=== PATIENT | male | born 1985 | race American Indian/Alaskan Native ===

== ENCOUNTER 2018-12-02 18:39 | Emergency (ER) | payer BC ==
--- NOTE | 2018-12-02 19:34 | Emergency Department Report ---
Blank Doc - Documentation Documentation: this is a 33-year-old male that presents with sob. Patient also stated is con cerned that somebody is out to get him. Patient denies any SI/HI. PMH includes "hearing voices". Patient is a poor historian. This initial assessment/diagnostic orders/clinical plan/treatment(s) is/are subject to change based on patient's health status, clinical progression and re- assessment by fellow clinical providers in the ED. Further treatment and workup at subsequent clinical providers discretion. Patient/guardians urged not to elope from the ED as their condition may be serious if not clinically assessed and managed. Initial orders include: 1- Patient sent to MAIN ED for further evaluation and treatment 2- labs 3- EKg 4- CXR 5- psych consult
[2018-12-02 20:18] LABS: Basophils # (Auto) 0.1 K/mm3 (0.0-0.1); Eosinophils % (Auto) 0.3 % (0.0-4.3); Hematocrit 44.3 % (35.5-45.6); Hemoglobin 14.8 gm/dl (11.8-15.2); Lymphocytes % (Auto) 22.9 % (13.4-35.0); Mean Corpuscular HGB Conc 33 % (32-34); Mean Corpuscular Volume 86 fl (84-94); Monocytes # (Auto) 0.8 K/mm3 (0.0-0.8); Monocytes % (Auto) 9.7 % (0.0-7.3); Platelet Count 341 K/mm3 (140-440); Red Blood Count 5.14 M/mm3 (3.65-5.03)
[2018-12-02 20:32] LABS: Creatine Kinase MB 8.8 ng/mL (0.0-4.0)
[2018-12-02 20:33] LABS: Alanine Aminotransferase 33 units/L (7-56); Albumin 4.3 g/dL (3.9-5); BUN/Creatinine Ratio 10; Blood Urea Nitrogen 7 mg/dL (9-20); Calcium 9.2 mg/dL (8.4-10.2); Hemolysis Index 8
[2018-12-02 20:36] LABS: INR 0.96 (0.87-1.13)
[2018-12-02 20:37] LABS: Partial Thromboplastin Time 26.9 Sec. (24.2-36.6)
--- NOTE | 2018-12-02 20:50 | XRay Report ---
PROCEDURE: XR CHEST ROUTINE 2V TECHNIQUE: PA and lateral views of the chest HISTORY: Dyspnea COMPARISONS: None FINDINGS: There is prominence of the interstitial markings in both lungs with peribronchial thickening, acute v ersus chronic. There appear to be patchy areas of pulmonary consolidation in both lung bases. Atelectasis versus inf iltrates. There is no evidence of pneumothorax or pleural fluid collection. The cardiomediastinal silhouette is normal in appearance. The bony structures are notable for dextrocurvature of the thoracic spine. IMPRESSION: 1. Prominence of the interstitial markings with peribronchial thickening, acute versus chronic. In th e proper clinical setting this may represent changes of bronchiolitis. 2. Atelectasis versus infiltrate both lung bases. 3. Dextrocurvature thoracic spine. This document is electronically signed by Judith Zamorano MD., December 02 2018 08:48:00 PM ET
[2018-12-02] MEDS ORDERED: NACL 0.9% 1000 ML 1,000 ML IV ONE ×2 (22:44→23:38)
[2018-12-02] MEDS ORDERED: BENADRYL PO ONE (23:04)
--- NOTE | 2018-12-02 23:08 | Emergency Department Report ---
HPI - General Chief Complaint: Dyspnea/Respdistress Time Seen by Provider: 12/02/18 19:25 - HPI HPI: Room 16 The patient is a 33-year-old male presenting with a chief complaint of anxiety. The patient states for one day's been unable to sleep and has had shortness of breath. Patient states he feels anxious. Patient denies cough or fever. Patient denies auditory or visual hallucinations. Patient denies suicidal or homicidal ideation. Patient denies any other complaints Location: [See above] Duration: [See above] Quality: Anxious Severity: Moderate Modifying factors: [see above] Context: [see above] Mode of transportation: [not driving] ED Past Medical Hx - Past Medical History Previous Medical History?: No Hx Hypertension: Yes Hx Psychiatric Treatment: Yes (psychosis NOS) - Surgical History Past Surgical History?: No - Family History Family history: no significant - Social History Smoking Status: Never Smoker Substance Use Type: None (denies illicit drug use) - Medications Home Medications: Home Medications Medication Instructions Recorded Confirmed Last Taken Type No Known Home Medications [No 12/02/18 12/02/18 Unknown History Reported Home Medications] ED Review of Systems ROS: Stated complaint: DHARMESH/SOB Other details as noted in HPI Constitutional: no symptoms reported Eyes: denies: eye pain ENT: denies: throat pain Respiratory: shortness of breath Cardiovascular: denies: chest pain Endocrine: no symptoms reported Gastrointestinal: denies: abdominal pain Genitourinary: denies: dysuria Musculoskeletal: denies: back pain Neurological: denies: headache Psychiatric: denies: auditory hallucinations, visual hallucinations, homicidal thoughts, suicidal thoughts Physical Exam - Physical Exam Vital Signs: Vital Signs 12/02/18 19:32 Temperature 98.3 F Pulse Rate 66 Respiratory 18 Rate Blood Pressure 137/88 Physical Exam: GENERAL: The patient is well-developed well-nourished male lying on stretcher not appear to be in acute distress. [] HEENT: Normocephalic. Atraumatic. Extraocular motions are intact. Patient has moist mucous membranes. NECK: Supple. Trachea midline CHEST/LUNGS: Clear to auscultation. There is no respiratory distress noted. HEART/CARDIOVASCULAR: Regular. There is no tachycardia. There is no gallop rub or murmur. ABDOMEN: Abdomen is soft, nontender. Patient has normal bowel sounds. There is no abdominal distention. SKIN: There is no rash. There is no edema. There is no diaphoresis. NEURO: The patient is awake, alert, and oriented. The patient is cooperative. The patient has no focal neurologic deficits. The patient has normal speech and gait. MUSCULOSKELETAL: There is no evidence of acute injury. ED Course Vital Signs 12/02/18 19:32 Temperature 98.3 F Pulse Rate 66 Respiratory 18 Rate Blood Pressure 137/88 ED Medical Decision Making - Lab Data Result diagrams: 12/02/18 20:00 12/02/18 20:00 Laboratory Tests 12/02/18 12/02/18 12/02/18 20:00 20:00 20:00 WBC 8.6 RBC 5.14 H Hgb 14.8 Hct 44.3 MCV 86 MCH 29 MCHC 33 RDW 14.0 Plt Count 341 Lymph % (Auto) 22.9 Potter % (Auto) 9.7 H Eos % (Auto) 0.3 Baso % (Auto) 1.0 Lymph # 2.0 Potter # 0.8 Eos # 0.0 Baso # 0.1 Seg Neutrophils % 66.1 Seg Neutrophils # 5.7 PT 13.4 INR 0.96 APTT 26.9 D-Dimer Sodium 134 L Potassium 3.4 L Chloride 96.8 L Carbon Dioxide 23 Anion Gap 18 BUN 7 L Creatinine 0.7 L Estimated GFR > 60 BUN/Creatinine Ratio 10 Glucose 94 Calcium 9.2 Total Bilirubin 0.40 AST 46 H ALT 33 Alkaline Phosphatase 57 Total Creatine Kinase CK-MB (CK-2) CK-MB (CK-2) Rel Index Troponin T Total Protein 7.7 Albumin 4.3 Albumin/Globulin Ratio 1.3 Salicylates Acetaminophen Plasma/Serum Alcohol 12/02/18 12/02/18 12/02/18 20:00 20:00 20:00 WBC RBC Hgb Hct MCV MCH MCHC RDW Plt Count Lymph % (Auto) Potter % (Auto) Eos % (Auto) Baso % (Auto) Lymph # Potter # Eos # Baso # Seg Neutrophils % Seg Neutrophils # PT INR APTT D-Dimer Sodium Potassium Chloride Carbon Dioxide Anion Gap BUN Creatinine Estimated GFR BUN/Creatinine Ratio Glucose Calcium Total Bilirubin AST ALT Alkaline Phosphatase Total Creatine Kinase 1686 H CK-MB (CK-2) 8.8 H CK-MB (CK-2) Rel Index 0.5 Troponin T < 0.010 Total Protein Albumin Albumin/Globulin Ratio Salicylates < 0.3 L Acetaminophen < 5.0 L Plasma/Serum Alcohol 12/02/18 12/02/18 12/03/18 20:00 22:30 01:19 WBC RBC Hgb Hct MCV MCH MCHC RDW Plt Count Lymph % (Auto) Potter % (Auto) Eos % (Auto) Baso % (Auto) Lymph # Potter # Eos # Baso # Seg Neutrophils % Seg Neutrophils # PT INR APTT D-Dimer 240.77 H Sodium Potassium Chloride Carbon Dioxide Anion Gap BUN Creatinine Estimated GFR BUN/Creatinine Ratio Glucose Calcium Total Bilirubin AST ALT Alkaline Phosphatase Total Creatine Kinase CK-MB (CK-2) CK-MB (CK-2) Rel Index Troponin T < 0.010 Total Protein Albumin Albumin/Globulin Ratio Salicylates Acetaminophen Plasma/Serum Alcohol < 0.01 12/03/18 01:19 WBC RBC Hgb Hct MCV MCH MCHC RDW Plt Count Lymph % (Auto) Potter % (Auto) Eos % (Auto) Baso % (Auto) Lymph # Potter # Eos # Baso # Seg Neutrophils % Seg Neutrophils # PT INR APTT D-Dimer Sodium Potassium Chloride Carbon Dioxide Anion Gap BUN Creatinine Estimated GFR BUN/Creatinine Ratio Glucose Calcium Total Bilirubin AST ALT Alkaline Phosphatase Total Creatine Kinase 1360 H CK-MB (CK-2) CK-MB (CK-2) Rel Index Troponin T Total Protein Albumin Albumin/Globulin Ratio Salicylates Acetaminophen Plasma/Serum Alcohol - EKG Data -: EKG Interpreted by Sd EKG shows normal: sinus rhythm Rate: bradycardia (58 bpm) - EKG Data When compared to previous EKG there are: previous EKG unavailable Interpretation: nonspecific ST-T wave wild - Radiology Data Radiology results: report reviewed (chest x-ray), image reviewed (chest x-ray) Findings [facility] [address] [place] [address] XRay Report Signed Patient: BRANDON ANDERSON MR#: [id number] : 1985 A cct:[id number] Age/Sex: 33 / M ADM Date: 12/02/18 Loc: ED Attending Dr: Ordering Physician: HEAVENLY BRICE NP Date of Service: 12/02/18 Procedure(s): XR chest routine 2V Accession Number(s): [id number] cc: HEAVENLY BRICE NP Fluoro Time In Minutes: PROCEDURE: XR CHEST ROUTINE 2V TECHNIQUE: PA and lateral views of the chest HISTORY: Dyspnea COMPARISONS: None FINDINGS: There is prominence of the interstitial markings in both lungs with peribronchial thickening, acute versus chronic. There appear to be patchy areas of pulmonary consolidation in both lung bases. Atelectasis versus infiltrates. There is no evidence of pneumothorax or pleural fluid collection. The cardiomediastinal silhouette is normal in appearance. The bony structures are notable for dextrocurvature of the thoracic spine. IMPRESSION: 1. Prominence of the interstitial markings with peribronchial thickening, acute versus chronic. In the proper clinical setting this may represent changes of bronchiolitis. 2. Atelectasis versus infiltrate both lung bases. 3. Dextrocurvature thoracic spine. This document is electronically signed by Judith Zamorano MD., December 02 2018 08:48:00 PM ET Transcribed By: ED Dictated By: JUDITH ZAMORANO MD Electronically Authenticated By: JUDITH ZAMORANO MD Signed Date/Time: 12/02/182049 DD/ 53 TD/TT: 12/02/181953 - Differential Diagnosis anxiety, PE Critical care attestation.: If time is entered above; I have spent that time in minutes in the direct care of this critically ill patient, excluding procedure time. ED Disposition Clinical Impression: Unspecified psychosis, Delusional disorder Disposition: DC/TX-[facility] PSY HOSP/PSY UNIT Is pt being admited?: No Does the pt Need Aspirin: No Condition: Fair Referrals: ISRRAEL NGUYEN MD [Primary Care Provider] - 3-5 Days Time of Disposition: 05:10 (awaiting acceptance)
[2018-12-03] MEDS ORDERED: NACL 0.9% 1000 ML 1,000 ML IV ONE ×2 (02:27→14:43)
[2018-12-03 07:15] LABS: Bacteria,Urine 1+ /HPF (Negative); Bilirubin,Urine NEG (Negative); Blood,Urine NEG (Negative); Color,Urine Straw (Yellow); Mucus,Urine FEW /HPF; Protein,Urine <15 mg/dL mg/dL (Negative); Urobilinogen,Urine < 2.0 mg/dL (<2.0)
[2018-12-03 07:23] LABS: Amphetamine Screen,Urine PRESUMPTIVE NEGATIVE; Benzodiazepines Screen,Urine PRESUMPTIVE NEGATIVE; Cocaine Screen,Urine PRESUMPTIVE NEGATIVE; Methadone Screen,Urine PRESUMPTIVE NEGATIVE; Opiate Screen,Urine PRESUMPTIVE NEGATIVE
[2018-12-03 07:42] LABS: Cannabinoid Screen,Urine PRESUMPTIVE POSITIVE
--- NOTE | 2018-12-03 14:04 | Consultation ---
History of Present Illness - Reason for Consult Consult date: 12/03/18 Reason for consult: Mental Health Evaluation Requesting physician: MARVA PRIEST - Chief Complaint Chief complaint: " I am afraid for my life" - History of Present Psychiatric Illness 33-year-old AA male who presented to the ER for anxiety and SOB. Today the patient is cooperative during the assessment. He stated that he was brought to the ER because of "breathing issues." He stated that medications he took recently (Haldol/Cogentin) effected his breathing. He stated that he feel like his life is in danger because of his past. He stated that he want his family to stay out of the "streets" so they can live longer.The patient had to be redirected several times to keep him on topic. His story about his past and family members maybe delusional thoughts. After several more minutes trying to explain why he was brought to the ER, the patient began to talk about advent content. He denies SI/HI's and AVH's. He would not confirm or deny erratic sleep. He denies a poor appetite, recreational drug use, and alcohol consumption (etoh). The patient is positive for marijuana. Per the patient, he was recently discharged from [facility] (Mental Health Facility). Medications and Allergies Allergies Allergy/AdvReac Type Severity Reaction Status Date / Time No Known Allergies Allergy Verified 12/02/18 18:43 Home Medications Medication Instructions Recorded Confirmed Last Taken Type No Known Home Medications [No 12/02/18 12/02/18 Unknown History Reported Home Medications] Past psychiatric history - Past Medical History Past Medical History: hypertension Past Surgical History: No surgical history - past Psychiatric treatment and history psychiatric treatment history: Recent admission to the [facility]. Denies a fam psy hx. - Social History Social history: lives with family Mental Status Exam - Vital signs Last Vital Signs Temp 97.9 F 12/03/18 05:09 Pulse 74 12/03/18 05:09 Resp 18 12/03/18 05:09 BP 142/96 12/03/18 05:09 Pulse Ox 100 12/03/18 05:09 - Exam Narrative exam: MSE: Appearance: in hospital attire Behavior: regular eye contact Speech: regular rate and tone Mood: "okay" Affect: congruent to mod Thought Process: circumstantial Thought Content: denies SI/HI's with AVH's, possibly delusional, paranoid, hyper advent Motor Activity: ambulatory Cognition: A/Ox 3 Insight: variable Judgment: variable Results Result Diagrams: 12/02/18 20:00 12/02/18 20:00 Abnormal lab results 12/02/18 12/02/18 12/02/18 Range/Units 20:00 20:00 20:00 RBC 5.14 H (3.65-5.03) M/mm3 Ponce % (Auto) 9.7 H (0.0-7.3) % D-Dimer (0-234) ng/mlDDU Sodium 134 L (137-145) mmol/L Potassium 3.4 L (3.6-5.0) mmol/L Chloride 96.8 L (98-107) mmol/L BUN 7 L (9-20) mg/dL Creatinine 0.7 L (0.8-1.5) mg/dL AST 46 H (5-40) units/L Total Creatine Kinase 1686 H (55-170) units/L CK-MB (CK-2) 8.8 H (0.0-4.0) ng/mL Salicylates (2.8-20.0) mg/dL Acetaminophen (10.0-30.0) ug/mL 12/02/18 12/02/18 12/02/18 Range/Units 20:00 20:00 22:30 RBC (3.65-5.03) M/mm3 Ponce % (Auto) (0.0-7.3) % D-Dimer 240.77 H (0-234) ng/mlDDU Sodium (137-145) mmol/L Potassium (3.6-5.0) mmol/L Chloride (98-107) mmol/L BUN (9-20) mg/dL Creatinine (0.8-1.5) mg/dL AST (5-40) units/L Total Creatine Kinase (55-170) units/L CK-MB (CK-2) (0.0-4.0) ng/mL Salicylates < 0.3 L (2.8-20.0) mg/dL Acetaminophen < 5.0 L (10.0-30.0) ug/mL 12/03/18 12/03/18 Range/Units 01:19 11:27 RBC (3.65-5.03) M/mm3 Ponce % (Auto) (0.0-7.3) % D-Dimer (0-234) ng/mlDDU Sodium (137-145) mmol/L Potassium (3.6-5.0) mmol/L Chloride (98-107) mmol/L BUN (9-20) mg/dL Creatinine (0.8-1.5) mg/dL AST (5-40) units/L Total Creatine Kinase 1360 H 1314 H (55-170) units/L CK-MB (CK-2) (0.0-4.0) ng/mL Salicylates (2.8-20.0) mg/dL Acetaminophen (10.0-30.0) ug/mL All other labs normal. Assessment and Plan Assessment and plan: Impression: Unspecified Psychosis. Cannabis Use DO. Today the patient is paranoid during the assessment. Elevated CK, but trending down. DDx: Bipolar DO with psychosis, Schizophrenia, Substance Induced Psychosis Recommendation/Plan: Continue 1013 and gather collateral information. Hold antipsychotics at this time until the patient's CK is addressed (elevated). The patient's assigned nurse was informed of his elevated CK. Dispo: The patient was referred to inpatient psy services. Will staff with Dr Meir Ferrara.
[2018-12-05 14:45] VITALS: BP 128/92
--- NOTE | 2018-12-05 15:17 | Progress Note ---
Subjective - Reason for Consult Consult date: 12/05/18 Reason for consult: Psychiatry Follow-up - Chief Complaint Chief complaint: " Hello" 33-year-old AA male who presented to the ER for anxiety and SOB. Today the patient is calm and cooperative during the assessment. Per collateral information from the patient's Rosalie Martin at [phone], she stated that her do not have a hx of mental health. She stated that he was bizarre after smoking marijuana prior to going to [place] recently. She stated that her did give his life to "Gaudencio" when he was in retirement. Also, she stated that the things he told me the provider (initial assessment) about himself and his family were true. She stated that her may have smoked marijuana prior to coming to [facility]. The patient stated that he would like to talk with a therapist once discharged because he have a lot to talk about reference his life. He denies SI/HI's and AVH's. Mental Status Exam - Vital signs Last Vital Signs Temp 98.4 F 12/05/18 09:15 Pulse 70 12/05/18 09:15 Resp 18 12/05/18 09:15 BP 128/92 12/05/18 09:15 Pulse Ox 100 12/05/18 09:15 - Exam Narrative exam: MSE: Appearance: calm, cooperative Behavior: regular eye contact Speech: regular rate and tone Mood: "okay" Affect: congruent to mod Thought Process: logical l Thought Content: denies SI/HI's with AVH's Motor Activity: ambulatory Cognition: A/Ox 3 Insight: appropriate Judgment: appropriate Assessment and Plan Impression: Unspecified Psychosis. Cannabis Use DO. Today the patient is calm and cooperative during the assessment. No overt psychosis with the patient. DDx: Bipolar DO with psychosis, Schizophrenia, Substance Induced Psychosis Recommendation/Plan: Rescind 1013. Discussed the importance to abstain from recreational drug use. Dispo: The patient can follow up with [facility] for outpatient christal abbott (Therapy). Will staff with Dr Nikolai Ferrara.
== END 2018-12-05 16:52 | disposition home or self-care (01) ==
LOC: EEVIPCON 18:39 → ED 18:39
DX: F22 Delusional disorders (principal); F29 Unspecified psychosis not due to a substance or known physiological condition; I10 Essential (primary) hypertension
CPT/HCPCS: 36415; 71046; 80053; 80307; 81001; 82550; 82553; 84484; 85025; 85379; 85610; 85730; 93005; 93010; 99285; G0480; J7030; 80320